=== PATIENT | female | born 1985 | race American Indian/Alaskan Native ===

== ENCOUNTER 2022-01-12 10:10 | Outpatient (CLI) | payer OTHER, MEDICAID ==
[2022-01-12 10:49] VITALS: BP 124/74
[2022-01-12] MEDS ORDERED: LACTATED RINGERS 500 ML IV ONE (12:00)
--- NOTE | 2022-01-12 12:39 | Ultrasound Report ---
ULTRASOUND OBSTETRIC INDICATION: Unknown gestational age. History of fall. Evaluate well-being. Clinical Gestational Age (GA): Unknown. TECHNIQUE: Transabdominal. COMPARISON: None available. FINDINGS: There is a single intrauterine . Biparietal Diameter = 3.13 cm = 15 weeks, 6 day(s). Head Circumference = 11.3 cm = 15 weeks, 4 day(s). Abdominal Circumference = 9.54 cm = 15 weeks, 5 day(s). Femur Length = 1.88 cm = 15 weeks, 4 day(s). Average Ultrasound Age (AUA) = 15 weeks, 5 day(s). Heart Rate: 166 beats per minute. Estimated Weight in grams (if calculated): Not measured Estimated Weight Growth Percentile (if calculated): Not measured Position: cephalic. Cervix: closed. Length in cm (if measured): Not measured Placenta: anterior and free of the os. A nonspecific area of heterogeneity is seen anteriorly along t he placenta with increased vascularity measuring 4.3 x 3.9 cm. No evidence of abruption. Amniotic Fluid Volume: normal Amniotic Fluid Index (VENKAT) in cm (if calculated): Not calculated. Maternal Adnexa: No significant abnormality. IMPRESSION: 1. Single, living intrauterine with estimated sonographic age of 15 weeks, 5 day(s). 2. No evidence of an acute abnormality related to the patient's reported recent fall. 3. Nonspecific area of heterogeneity in the placenta could represent an atypical placental kumar or a chorioangioma. Close attention on follow-up imaging is recommended. Signer Name: Flako Rowland MD Signed: 01/12/2022 12:35 PM Workstation Name: [id number]
[2022-01-12 12:44] LABS: Color,Urine Straw (Yellow)
[2022-01-12 12:56] LABS: Basophils # (Auto) 0.2 K/mm3 (0.0-0.1); Basophils % (Auto) 2.4 % (0.0-1.8); Eosinophils # (Auto) 0.2 K/mm3 (0.0-0.4); Eosinophils % (Auto) 2.3 % (0.0-4.3); Hematocrit 32.2 % (30.3-42.9); Hemoglobin 10.5 gm/dl (10.1-14.3); Lymphocytes # (Auto) 0.9 K/mm3 (1.2-5.4); Lymphocytes % (Auto) 11.5 % (13.4-35.0); Mean Corpuscular HGB Conc 33 % (30-34); Mean Corpuscular Volume 89 fl (79-97); Monocytes # (Auto) 0.4 K/mm3 (0.0-0.8); Monocytes % (Auto) 5.6 % (0.0-7.3); Platelet Count 203 K/mm3 (140-440); Red Blood Count 3.62 M/mm3 (3.65-5.03); Red Cell Distribution Width 14.4 % (13.2-15.2)
[2022-01-12 14:12] LABS: Bacteria,Urine 3+ /HPF (Negative); Mucus,Urine 3+ /HPF
[2022-01-12 14:21] LABS: WBC,Urine > 182.0 /HPF (0.0-6.0)
[2022-01-12] MEDS ORDERED: LIDOCAINE-MPF (1%) 10 MG/1 ML VIAL 5 ML INFILTRATI ONE (14:33)
[2022-01-12 14:50] LABS: Amphetamine Screen,Urine Negative; Benzodiazepines Screen,Urine Negative; Cannabinoid Screen,Urine Negative; Cocaine Screen,Urine Negative; Methadone Screen,Urine Negative; Opiate Screen,Urine Negative
== END 2022-01-12 15:57 | disposition home or self-care (01) ==
LOC: NM 10:10 → APU 10:14 → NM 15:57
PROVIDERS: ATTEND Obstetrics & Gynecology
DX: O26.892 Other specified pregnancy related conditions, second trimester (principal); R10.31 Right lower quadrant pain; O16.3 Unspecified maternal hypertension, third trimester; Z3A.15 15 weeks gestation of pregnancy
CPT/HCPCS: 36415; 76816; 80307; 81001; 85025; 86850; 86900; 86901; 96372; J0696; J3490